=== PATIENT | female | born 1960 | race Caucasian/White ===

== ENCOUNTER 2019-09-06 10:02 | Outpatient (REF) | payer BC, SELFPAY ==
[2019-09-06 12:39] LABS: Chol HDL Ratio 5.78 mg/dL (0.0-4.40); Cholesterol 266 mg/dL (0-200); Glucose 130 mg/dL (65-115); HDL Cholesterol 46 mg/dL (60-100); LDL Cholesterol Calculated 186 mg/dL (50-129); LDL HDL Ratio 4.04 RATIO (0.00-3.22); Triglycerides 170 mg/dL (0-150)
[2019-09-06 13:27] LABS: Estmated Average Glucose 143; Hemoglobin A1C 6.6 % (4.0-6.0)
== END 2019-09-06 10:03 | disposition home or self-care (01) ==
LOC: LAB 10:02
PROVIDERS: Family Provider Family Medicine; PCP Family Medicine; Visit Provider Dermatology
DX: Z01.89 Encounter for other specified special examinations (principal)
CPT/HCPCS: 80061; 82947; 83036

== ENCOUNTER 2019-12-27 14:28 | Outpatient (CLI) | payer BC, SELFPAY ==
--- NOTE | 2019-12-27 14:38 | MM_ITS ---
WS: [id number] BILATERAL SCREENING DIGITAL MAMMOGRAM WITH CAD HISTORY: SCREEN COMPARISON: 12/20/2018 and 12/18/2017 and 12/16/2016 Bilateral CC and MLO views submitted. Computer aided detection analyzed. Breast composition: There are scattered areas of fibroglandular density. No suspicious masses, microc alcifications or architectural distortion. Biopsy clip in the anterior RIGHT breast with no adjacent soft tissue mass or calcification. MM/[id number] IMPRESSION: BI-RADS: 2-Benign FOLLOW UP: 1 Year Follow-up
== END 2019-12-27 14:29 | disposition home or self-care (01) ==
LOC: RADSHAW 14:32
PROVIDERS: PCP Family Medicine; Visit Provider Family Medicine
DX: Z12.31 Encounter for screening mammogram for malignant neoplasm of breast (principal)
CPT/HCPCS: 77067

== ENCOUNTER 2020-02-13 12:49 | Outpatient (CLI) | payer MEDICARE, OTHER, SELFPAY ==
--- NOTE | 2020-02-13 13:03 | US_ITS ---
WS: [id number] ULTRASOUND ABDOMEN LIMITED CLINICAL INFORMATION: CHOLESTERIOSIS OF GALLBLADDER COMPARISON: None. FINDINGS: Liver Size: Upper limits of normal Craniocaudal length: 17.0 cm. Echogenicity: Normal. Surface nodularity: None. Mass (size and location): None. Bile ducts Intrahepatic ducts: Normal. Common bile duct diameter: 0.2 cm. Gallbladder Tiny polyp or tumefactive sludge unchanged measuring 9 mm Gallbladder wall thickening: None. Pericholecystic fluid: None. Sonographic [place] sign: Absent. Pancreas Normal as visualized. Right kidney: Normal. Hydronephrosis: None. Size: 10.9 cm x 5.0 cm x 4.9 cm. Abdominal aorta and IVC Visualized portions are normal. Ascites: None. US/US gall bladder [id number] IMPRESSION: 1. Liver upper limits of normal. 2. Small gallbladder polyp or tumefactive sludge is unchanged. Gallbladder oth erwise normal 3. Normal common bile duct 4. Incidental right renal cyst measuring 1.1 x 1.0 x 1.5 cm
== END 2020-02-13 12:50 | disposition home or self-care (01) ==
LOC: RAD 12:56
PROVIDERS: PCP Family Medicine; Visit Provider Family Medicine
DX: K82.4 Cholesterolosis of gallbladder (principal); Q61.01 Congenital single renal cyst
CPT/HCPCS: 76705

== ENCOUNTER 2020-02-26 15:31 | Outpatient (CLI) | payer MEDICARE, OTHER, SELFPAY ==
--- NOTE | 2020-02-26 15:41 | CT_ITS ---
WS: [id number] CT ABDOMEN AND PELVIS NONCONTRAST HISTORY: FLANK PAIN, UNSPECIFIED ABDOMINAL PAIN TECHNIQUE: Imaging performed through the abdomen and pelvis. Coronal and sagittal reformats are submi tted. All CT scans at [facility] use at least one of these dose optimization techniques: automated exposure control; mA and/or kV adjustment per patient size (includes targeted exams where d ose is matched to clinical indication); or iterative reconstruction. DLP: 962.57 mGycm COMPARISON: 05/10/2017 Lower thorax: Long-term stability 5 mm RIGHT lower lobe nodule. Heart size is normal. No hiatal herni a. Liver: Liver is moderately enlarged extending over length of 17 cm with mild hepatic steatosis. No ma ss or bile duct dilatation. Gallbladder: Unremarkable. Pancreas: Normal. Spleen: Normal. Adrenal glands: Normal. Right kidney: Exophytic cortical hypodensity from the mid kidney measures 11 mm. There are additional smaller cortical hypodensities within the upper pole. No calcification or obstruction. RIGHT ureter is normal. Left kidney: Normal size with no stones, mass or atrophy. Mild atherosclerosis with no aneurysm. No free fluid, intraperitoneal air or significant lymphadenopathy. GI tract: Normal appendix. There is extensive fecal retention in the RIGHT colon and the transverse c olon and splenic flexure. Moderate fecal retention in the descending and sigmoid colon. There are a f ew diverticula without evidence for acute diverticulitis. Abdominal wall: Intact. Pelvis: Prior hysterectomy. Urinary bladder is well distended. No free fluid or adenopathy. Osseous structures: L4 anterolisthesis by 7 mm. Mild progression since 2017 of the anterolisthesis. N o pars defects. Severe disc space narrowing at L5-S1 has also progressed. CT/CT kidney stone [id number] IMPRESSION: 1. Normal appendix. 2. No renal calcifications or obstruction. 3. Marked constipation and fecal retention throughout the colon. 4. Grade 1 anterolisthesis of L4 with degenerative disc disease at L4-5. Progr ession of degenerative changes since 2017. 5. Long-term stability 5 mm RIGHT lower lobe nodule. 6. Moderate hepatic steatosis and hepatomegaly.
== END 2020-02-26 15:32 | disposition home or self-care (01) ==
LOC: RADWPI 15:34
PROVIDERS: PCP Family Medicine; Visit Provider Family Medicine
DX: R10.9 Unspecified abdominal pain (principal); K59.00 Constipation, unspecified; R16.0 Hepatomegaly, not elsewhere classified; K76.0 Fatty (change of) liver, not elsewhere classified; R91.1 Solitary pulmonary nodule
CPT/HCPCS: 74176

== ENCOUNTER → 2020-04-20 11:02 | Outpatient (BNVA) | payer MEDICARE, OTHER, SELFPAY | PROVIDERS: PCP Family Medicine; Visit Provider Internal Medicine | DX: Z01.818 Encounter for other preprocedural examination (principal) | CPT/HCPCS: 87635 ==

== ENCOUNTER 2020-04-23 09:49 | Day surgery (SDC) | payer MEDICARE, OTHER, SELFPAY ==
[2020-04-22 13:59] VITALS: BMI 33.5
[2020-04-23] VITALS (7 sets, daily range): BP systolic 108–154; BP diastolic 56–87; PULSE 51–86; RESP 16–20; TEMP 36.2–36.7; O2SAT 95–100
--- NOTE | 2020-04-23 10:10 | W.PM.OPSUD ---
Surgery/Procedure H&P Update DATE OF PROCEDURE: April 23, 2020 DATE H&P PERFORMED: 04/07/20 H&P UPDATE INFORMATION: No changes to prior documentation PLANNED PROCEDURE: Operation Date: 04/23/20 11:10 Proposed Procedures p Laparoscopic Cholecystectomy(Not Applicable) - Vazquez Rangel MD
[2020-04-23 10:39] LABS: Glucose Point of Care 165 mg/dL (70-110)
[2020-04-23] MEDS: sodium chloride 0.9% 1,000 ML 30 ML IV (10:56)
[2020-04-23] MEDS: scopolamine 1.5 Patch 1 PATCH TRANSDERMA (10:57)
[2020-04-23 11:00] LABS: Alanine Aminotransferase 19 U/L (0-33); Albumin Level 4.7 g/dL (3.5-5.2); Alkaline Phosphatase 125 IU/L (35-105); Aspartate Amino Transferase 21 U/L (0-32); Total Bilirubin 0.4 mg/dL (0.15-1.2); Total Protein 7.7 g/dL (6.6-8.7)
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
--- NOTE | 2020-04-23 12:03 | PM.OP ---
Operative Report Date of procedure: April 23, 2020 Pre-op Diagnosis: Sizable gallbladder polyp, right upper quadrant abdominal pain. Post-op diagnosis: same Procedure Done: Laparoscopic cholecystectomy. Specimens removed/disposition: Gallbladder. Surgeon: Vazquez Rangel Anesthesia: General Estimated blood loss (mL): 5 Complications: None. Disposition: PACU Procedure: The patient was brought to the Operating Room and was placed in a supine position on the Operating Room table. General endotracheal anesthesia was induced. The abdomen was prepped and draped in a sterile fashion. A small vertical incision was carried out in the inferior aspect of the umbilicus. Blunt dissection was carried out down to the fascia, which was grasped with a Bran clamp. A stay suture of 0 Vicryl was placed on either side of the midline and the midline fascia was incised. The underlying peritoneum was opened bluntly and the Jono port was placed directly into the peritoneal cavity and was held in place with the inflatable balloon. The peritoneal cavity was insufflated with carbon dioxide. The laparoscope was used to inspect the abdominal cavity. The patient had some omental adhesions just below the umbilicus which were eventually taken down. No other gross abnormalities were initially noted. A 5 millimeter port was placed in the epigastrium under direct vision. Two 5-millimeter ports were placed on the right side of the abdomen under direct vision. The gallbladder was grasped and was elevated. The patient had adhesions all the way along the fundus down to and involving the infundibular region. These were all taken down using blunt dissection with some cautery to maintain hemostasis. Blunt dissection and hydrodissection were carried out in the infundibular region of the gallbladder and the cystic duct and cystic artery were identified. The gallbladder was partially removed from the liver bed using cautery and the spatula to confirm the anatomy before the structures were clipped and divided. The gallbladder was then removed from the liver bed using cautery and the spatula. A small hole was inadvertently made in the gallbladder during the dissection, and some bile leaked into the subhepatic space that was retrieved with suction. No stones were ever seen to have fallen from the gallbladder lumen, consistent with the preoperative imaging. After the gallbladder had been removed from the liver bed, the laparoscope was moved to the epigastric port and the gallbladder was removed from the peritoneal cavity through the umbilical port site. The stay sutures of Vicryl were tied to each other at the umbilicus, closing the defect so that it was airtight. The perihepatic spaces were irrigated with saline and the liver bed was reinspected. No ongoing problems were seen. The remaining ports were removed from the abdominal wall and the pneumoperitoneum was evacuated. All skin incisions were closed using inverted interrupted sutures of 4-0 Vicryl. Benzoin and Steri-Strips were placed over the incisions and Band-Aids followed. The patient was taken to the Recovery Area in stable condition postoperatively.
[2020-04-23] MEDS: morphine ER (12 HR) 15 mg Tablet PO (13:15)
--- NOTE | 2020-04-23 14:00 | ANE.PACU2 ---
Inpatient post-anesthesia follow up: Airway intact: Yes Vital signs: Temperature 97.8 F Pulse Rate 60 Respiratory Rate 18 Blood Pressure 125/69 Pulse Oximetry 100 Oxygen Delivery Me thod Room Air Oxygen Flow Rate 6 Fraction of Inspir ed Oxygen Hydration adequate: Yes Nausea and vomiting: No Pain level: 2 Mental status: Baseline
== END 2020-04-23 14:06 | disposition home or self-care (01) ==
PROVIDERS: PCP Family Medicine; Visit Provider Surgery
PROC: 0FT44ZZ Resection of Gallbladder, Percutaneous Endoscopic Approach (ICD-10-PCS; CPT 47562; principal; 2020-04-23 11:10)
DX: K82.4 Cholesterolosis of gallbladder (principal); G47.30 Sleep apnea, unspecified; E11.9 Type 2 diabetes mellitus without complications; M79.7 Fibromyalgia; I10 Essential (primary) hypertension; E66.9 Obesity, unspecified; Z68.33 Body mass index [BMI] 33.0-33.9, adult; Z82.49 Family history of ischemic heart disease and other diseases of the circulatory system; E78.00 Pure hypercholesterolemia, unspecified
CPT/HCPCS: 47562; 12345; 36415; 36416; 80076; 82962; 88304; 96365; J0131; J0690; J1100; J2405; J2704; J2710; J3010; J3490; J7030

== ENCOUNTER → 2020-08-10 10:02 | Outpatient (BNVA) | payer MEDICARE, OTHER, SELFPAY | PROVIDERS: PCP Family Medicine; Visit Provider Internal Medicine Cardiovascular Disease | DX: E78.5 Hyperlipidemia, unspecified (principal); E11.9 Type 2 diabetes mellitus without complications; I10 Essential (primary) hypertension | CPT/HCPCS: 80053; 80061; 83036; 83721 ==

== ENCOUNTER 2020-12-25 16:46 | Emergency (ER) | payer MEDICARE, OTHER, SELFPAY ==
[2020-12-25 17:04] VITALS: BP 169/92; PULSE 90; RESP 18; TEMP 36.9; O2SAT 99; BMI 34.0
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
[2020-12-25] MEDS: tetanus-dipt-pertussis 0.5 mL SDV IM (17:49)
== END 2020-12-25 18:20 | disposition home or self-care (01) ==
PROVIDERS: Emergency Provider Nurse Practitioner Family; PCP Family Medicine
DX: S80.811A Abrasion, right lower leg, initial encounter (principal); W26.8XXA Contact with other sharp object(s), not elsewhere classified, initial encounter; E11.9 Type 2 diabetes mellitus without complications; E78.5 Hyperlipidemia, unspecified; I10 Essential (primary) hypertension; Z23 Encounter for immunization
CPT/HCPCS: 90471; 90715; 96372; 99283; J1670

== ENCOUNTER 2020-12-29 08:27 | Outpatient (CLI) | payer MEDICARE, OTHER, SELFPAY ==
--- NOTE | 2020-12-29 08:33 | MM_ITS ---
WS: [id number] BILATERAL SCREENING DIGITAL MAMMOGRAM WITH CAD HISTORY: SCREENING COMPARISON: 12/27/2019 and 12/20/2018 Bilateral CC and MLO views submitted. Computer aided detection analyzed. Breast composition: There are scattered areas of fibroglandular density. No suspicious masses, microc alcifications or architectural distortion. Biopsy clip at 12:00 RIGHT breast. No new or suspicious ma sses or calcifications. MM/[id number] IMPRESSION: BI-RADS: 2-Benign FOLLOW UP: 1 Year Follow-up
== END 2020-12-29 08:28 | disposition home or self-care (01) ==
LOC: RADSHAW 08:30
PROVIDERS: PCP Family Medicine; Visit Provider Family Medicine
DX: Z12.31 Encounter for screening mammogram for malignant neoplasm of breast (principal)
CPT/HCPCS: 77067

== ENCOUNTER → 2021-01-01 15:59 | Outpatient (BNVA) | payer MEDICARE, OTHER, SELFPAY | PROVIDERS: PCP Family Medicine; Visit Provider Nurse Practitioner Family | DX: Z20.822 Contact with and (suspected) exposure to COVID-19 (principal) | CPT/HCPCS: 87635 ==

== ENCOUNTER 2021-03-26 13:41 | Outpatient (CLI) | payer MEDICARE, OTHER, SELFPAY ==
--- NOTE | 2021-03-26 13:47 | MR_ITS ---
WS: [id number] Exam: MR lumbar spine wo con* [id number] Date/Time of Exam: 03/26/2021 1:48 PM Reason For Exam: BACK PAIN, PERIPHERAL NEUROPATHY The lumbar spine is evaluated in the sagittal and axial planes with multiple imaging sequences. There is severe spinal canal stenosis at the L4-5 disc level secondary to degenerative anterolisthesi s of C4 on C5. There is thickening of the ligamentum flavum which also contributes to canal stenosis. There were no other levels of significant spinal canal stenosis. No sign of disc herniation. The homer ral foramina are patent at all levels. Disc degeneration seen at all levels but most severe at L4-5. The vertebra demonstrate normal bone marrow signal. The conus medullaris and cauda equina are unremar kable. Paraspinal soft tissue structures are unremarkable. There are small cysts noted in the visuali zed kidneys. MR/MR lumbar spine wo con* [id number] IMPRESSION: 1. Severe spinal canal stenosis with neural sac impingement at L4-5 secondary t o grade 1 degenerative spondylolisthesis of L4 on L5 and ligamentous thickening . There is about 6 mm forward movement of L4 on L5. 2. No other sign of spinal canal stenosis or significant disc protrusion. The n eural foramina are patent at all levels. 3. Degenerative disc changes and facet DJD at all levels.
== END 2021-03-26 13:42 | disposition home or self-care (01) ==
PROVIDERS: PCP Family Medicine; Visit Provider Family Medicine
DX: M54.9 Dorsalgia, unspecified (principal); G62.9 Polyneuropathy, unspecified; M47.816 Spondylosis without myelopathy or radiculopathy, lumbar region; M48.061 Spinal stenosis, lumbar region without neurogenic claudication
CPT/HCPCS: 72148

== ENCOUNTER 2021-04-22 14:42 | Outpatient (CLI) | payer MEDICARE, OTHER, SELFPAY ==
[2021-04-22 16:03] LABS: Anion Gap 13.8 (5-19); Blood Urea Nitrogen 6 mg/dL (6-20); C Reactive Protein 4.8 mg/L (0.0-4.9); Calcium 9.2 mg/dL (8.5-10.5); Carbon Dioxide 27 mmol/L (22-29); Chloride 103 mmol/L (98-107); Creatine Phosphokinase 106 U/L (26-192); Glomerular Filtration Rate 163.9 mL/min (90-130); Glucose 139 mg/dL (65-115); Lactate (Lactic Acid level) 1.1 mmol/L (0.5-2.2); Magnesium 2.3 mg/dL (1.7-2.3); Osmolality Calculated 290 mOsm/kg (285-295); Potassium 3.8 mmol/L (3.5-5.1); Sodium 140 mmol/L (136-145)
[2021-04-22 17:39] LABS: Iron 109 ug/dL (37-145); Percent Saturation 23.5 % (20-50); Total Iron Binding Capacity 462 mcg/dl; Unsaturated Iron Binding 353 ug/dL (112-347)
== END 2021-04-22 14:43 | disposition home or self-care (01) ==
PROVIDERS: PCP Family Medicine; Visit Provider Family Medicine
DX: M60.9 Myositis, unspecified (principal); M62.838 Other muscle spasm
CPT/HCPCS: 36415; 80048; 82550; 83540; 83550; 83605; 83735; 86140

== ENCOUNTER 2021-04-28 19:32 | Emergency (ER) | payer MEDICARE, OTHER, SELFPAY ==
[2021-04-28 19:43] VITALS: BP 159/84; PULSE 90; RESP 24; TEMP 36.3; O2SAT 100; BMI 33.6
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
[2021-04-28 20:00] VITALS: PULSE 92
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
[2021-04-28 20:05] VITALS: BP 149/80; PULSE 88; RESP 22; TEMP 37.1; O2SAT 99
[2021-04-28 20:06] VITALS: RESP 22; O2SAT 100
[2021-04-28] MEDS: morphine 4 mg/mL SDV 1 mL IM (20:06)
--- NOTE | 2021-04-28 20:33 | PC.NURSE ---
Right 2nd, 3rd and 4th fingers are splinted together for rachael wrap with pedi board for support. Pulses, sensation WNL before and after splinting.
[2021-04-28 20:36] VITALS: BP 156/80; PULSE 90; RESP 18; TEMP 37.1; O2SAT 99
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
[2021-04-28 20:59] VITALS: BP 135/77; PULSE 84; RESP 16; O2SAT 97
--- NOTE | 2021-04-28 21:11 | PC.NURSE ---
[facility]
== END 2021-04-28 21:25 | disposition home or self-care (01) ==
PROVIDERS: Emergency Provider Emergency Medicine; PCP Family Medicine
DX: S62.612A Displaced fracture of proximal phalanx of right middle finger, initial encounter for closed fracture (principal); Y04.8XXA Assault by other bodily force, initial encounter; E11.9 Type 2 diabetes mellitus without complications; E78.5 Hyperlipidemia, unspecified; I10 Essential (primary) hypertension
CPT/HCPCS: 73120; 96372; 99283; J2270

== ENCOUNTER → 2021-07-21 15:58 | Outpatient (BNVA) | payer MEDICARE, OTHER, SELFPAY | PROVIDERS: PCP Family Medicine; Visit Provider Emergency Medicine | DX: Z20.822 Contact with and (suspected) exposure to COVID-19 (principal) | CPT/HCPCS: 87635 ==

== ENCOUNTER 2021-09-27 10:57 | Outpatient (CLI) | payer MEDICARE, OTHER, SELFPAY ==
[2021-09-27 11:09] VITALS: BMI 33.5
--- NOTE | 2021-09-27 11:11 | NMCV_ITS ---
NM patti perf SPECT r/s* [id number] Vinicio Hough Age: 61 Gender: F : 1960 Exam Date: 09/27/2021 11:50 Ordering Phys: Jessica Hernadez MD ([email or web address]) Technologist: DEEPTHI Abreu Exam Location: [facility] Indications: CHEST PAIN STRESS TEST Please see separate stress test report in [facility] for full findings IMAGE PROTOCOL Rest/Stress 1 Exercise Day Radiopharmaceutical Dose (mCi) Administration Site Administered by Rest: Tc-99m 10.8 IV DEEPTHI Salazar Sestamibi Stress:Tc-99m 32.5 IV DEEPTHI Salazar Sestamibi Rest: 27-Sep-2021 60 Discovery 630 Stress: 27-Sep-2021 15 Discovery 630 Radiopharmaceutical was injected at 86 % maximum heart rate. Images obtained in supine and prone position. SPECT RESULTS Technical Quality: Excellent Raw Data Analysis: Normal Image Corrections: No attenuation or motion correction applied Summed Stress Score: 4 Summed Rest Score: 0 Summed Difference Score: 4 PERFUSION FINDINGS Small sized perfusion abnormality of mild severity of mid inferolateral and apical lateral wall on supine stress images with improved tracer uptake on prone stress images. This is suggestive of attenuation artifact. FUNCTIONAL RESULTS (calculated via Gated SPECT) Stress Image LV EF (%): 73 Stress EDV (mL):83 TID: 0.75 Stress ESV (mL):22 FUNCTIONAL FINDINGS: The left ventricle is normal in size. Transient Ischemia Dilatation of 0.75. There is normal left ventricular systolic function. The left ventricular ejection fraction is normal with a value of 73%. There is normal left ventricular wall thickening with no regional wall motion abnormality. Normal end-diastolic and end-systolic volumes. IMPRESSIONS 1. Myocardial perfusion imaging is normal. 2. Overall left ventricular systolic function is normal without regional wall motion abnormalities. 3. The left ventricular ejection fraction is normal with a value of 73%. 4. No EKG changes with exercise. Refer to separate report for details. 5. No prior similar studies to compare. Jessica Hernadez MD (Electronically Signed) Final Date: 30 September 2021 17:04 S
--- NOTE | 2021-09-27 11:11 | ECG_ITS ---
[facility] Test Date: 2021-09-27 Pat Name: Vinicio Hough Department: Room: Gender: Female Mid Level Developer: Cecy Wren : 1960 Requested By: Jessica Hernadez Order Number: [id number] De Dios MD: Jessica Hernadez M.D. Interpretive Statements NAME OF STUDY: EXERCISE SESTAMIBI STRESS TEST INDICATION: Chest Pain Baseline blood pressure of 153/87 mm Hg, heart rate 82 beats per minute and oxygen saturation of 95%. EKG showed normal sinus rhythm, normal axis with normal ST-Ts. The patient exercised for 6 minutes 33 seconds on a standard Satya protocol. Patient attained a maximum heart rate of 142 beats per minute(88% of the maximum predicted heart rate) with a blood pressure at the peak exercise of 191/65 mm Hg and oxygen saturation 97%. The EKG at the peak exercise revealed sinus tachycardia with no significant ST-T wave changes. Patient did not have any chest pain or any significant arrhythmis with the exercise. The study was terminated due to exertional fatigue and maximal effort. During the recovery phase, there were no new changes. Blood pressure at the end of the recovery phase was 140/72 mm Hg with a heart rate of 96 beats per minute and oxygen saturation 97%. CONCLUSION: 1. Normal EKG response to treadmill exercise. 2. No exercise-induced chest pain or cardiac arrhythmia. 3. Fair exercise tolerance, attained a maximum of 7 METs. Maximum VO2 of 24.5 mL/kg/min. 4. Baseline hypertension with normal response to exercise. 5. Perfusion scan will be documented separately. Electronically Signed On 09-30-2021 16:54:07 MOHS SURGEON/GENERAL DERMATOLOGIST by Jessica Hernadez M.D. [id number]
[2021-09-27 12:41] VITALS: BP 140/72; PULSE 94
== END 2021-09-27 10:58 | disposition home or self-care (01) ==
LOC: RAD 10:58 → CDL 10:59
PROVIDERS: PCP Family Medicine; Visit Provider Internal Medicine Cardiovascular Disease
DX: R06.02 Shortness of breath (principal)
CPT/HCPCS: 78452; 93017; A9500

== ENCOUNTER 2021-10-06 13:59 | Outpatient (CLI) | payer MEDICARE, OTHER, SELFPAY ==
[2021-10-06 14:25] LABS: Basophils # 0.1 10^3/uL (0.0-0.1); Basophils % 1.2 %; Eosinophils # 0.2 10^3/uL (0.0-0.8); Eosinophils % 2.6 %; Hematocrit 41.8 % (37.0-47.0); Hemoglobin 14.1 g/dL (11.5-15.3); Lymphocytes # 1.7 10^3/uL (0.8-4.8); Lymphocytes % 19.1 %; Mean Corpuscular HGB Conc 33.7 g/dL (30.0-36.0); Mean Corpuscular Hemoglobin 30.3 pg (28.0-34.0); Mean Corpuscular Volume 89.9 fl (81-99); Mean Platelet Volume 11.4 fL (7.4-10.4); Monocytes # 0.5 10^3/uL (0.2-0.9); Monocytes % 5.9 %; Neutrophils # 6.29 10^3/uL (1.8-7.7); Nucleated Red Blood Cells % 0 %; Platelet Count 274 10^3/cmm (130-400); Red Blood Count 4.65 10^6/uL (4.1-5.3); Red Cell Distribution Width 12.6 % (12.1-15.1); White Blood Count 8.9 10^3/uL (4.0-10.0)
[2021-10-06 14:44] LABS: Estmated Average Glucose 163; Hemoglobin A1C 7.3 % (4.0-6.0)
[2021-10-06 14:57] LABS: Chol HDL Ratio 5.62 mg/dL (0.0-4.40); Cholesterol 292 mg/dL (0-200); HDL Cholesterol 52 mg/dL (60-100); LDL Cholesterol Calculated 209 mg/dL (50-129); Triglycerides 157 mg/dL (0-150); VLDL Cholestrol Calculation 31 mg/dL (0-30)
[2021-10-07 14:50] LABS: Alanine Aminotransferase 20 U/L (0-33); Albumin Level 4.2 g/dL (3.5-5.2); Alkaline Phosphatase 132 IU/L (35-105); Aspartate Amino Transferase 20 U/L (0-32); Globulin 2.8 g/dL (1.3-4.6); LDL Cholesterol Direct 215 mg/dL (0-100); Total Bilirubin 0.2 mg/dL (0.15-1.2)
== END 2021-10-06 14:00 | disposition home or self-care (01) ==
LOC: LAB 14:03
PROVIDERS: Internal Medicine Cardiovascular Disease; PCP Family Medicine; Visit Provider Family Medicine
DX: E78.5 Hyperlipidemia, unspecified (principal); I10 Essential (primary) hypertension; E11.9 Type 2 diabetes mellitus without complications
CPT/HCPCS: 80061; 80076; 83036; 83721; 85025

== ENCOUNTER → 2021-10-27 11:28 | Outpatient (BNVA) | payer MEDICARE, OTHER, SELFPAY | PROVIDERS: PCP Family Medicine; Visit Provider Internal Medicine Cardiovascular Disease | DX: R07.9 Chest pain, unspecified (principal); I10 Essential (primary) hypertension; E78.5 Hyperlipidemia, unspecified; E11.9 Type 2 diabetes mellitus without complications | CPT/HCPCS: 99214 ==

== ENCOUNTER 2021-11-08 10:40 | Outpatient (CLI) | payer MEDICARE, OTHER, SELFPAY ==
--- NOTE | 2021-11-08 10:48 | XR_ITS ---
WS: [id number] SCREENING DEXA SCAN Flavourly CLINICAL INFORMATION: ASYMPTOMATIC MENOPAUSAL STATE COMPARISON: None. FINDINGS: The L1-L4 bone mineral density measures 1.068 g/cm2. This corresponds to a T score score of -0.9 and Z score of -0.5. Left femoral neck bone mineral density measures 0.908 g/cm2. This corresponds to a T score of -0.8 an d Z score of -0.4. Right femoral neck bone mineral density measures 0.937 g/cm2. This corresponds to a T score -0.6of an d Z score of -0.2. Mean femoral neck bone mineral density measures 0.922 g/cm2. This corresponds to a T score of -0.7 an d Z score of -0.3. XR/XR DEXA axial skeleton* [id number] IMPRESSION: Normal bone mineralization. Patient's FRAX calculated 10 year probability for major osteoporotic fracture i s 15.5 % and osteoporotic hip fracture is 2.1%.
== END 2021-11-08 10:41 | disposition home or self-care (01) ==
LOC: RAD 10:43
PROVIDERS: PCP Family Medicine; Visit Provider Family Medicine
DX: Z78.0 Asymptomatic menopausal state (principal)
CPT/HCPCS: 77080

== ENCOUNTER 2022-01-14 14:21 | Outpatient (CLI) | payer MEDICARE, OTHER, SELFPAY ==
--- NOTE | 2022-01-14 14:32 | MM_ITS ---
WS: [id number] BILATERAL SCREENING DIGITAL BREAST TOMOSYNTHESIS MAMMOGRAM WITH CAD HISTORY: SCREEN COMPARISON: 12/29/2021, 12/18/2017 Bilateral CC and MLO views with tomosynthesis and synthetic mammography submitted. Computer aided det ection analyzed. Breast composition: There are scattered areas of fibroglandular density. No suspicious masses, microc alcifications or architectural distortion. Stable calcifications and asymmetries within each breast. MM/[place] [id number] IMPRESSION: BI-RADS: 2-Benign FOLLOW UP: 1 Year Follow-up
== END 2022-01-14 14:22 | disposition home or self-care (01) ==
LOC: RAD 14:25
PROVIDERS: PCP Family Medicine; Visit Provider Family Medicine
DX: Z12.31 Encounter for screening mammogram for malignant neoplasm of breast (principal)
CPT/HCPCS: 77063; 77067

== ENCOUNTER 2022-04-14 11:09 | Outpatient (CLI) | payer MEDICARE, OTHER, SELFPAY ==
[2022-04-14 12:38] LABS: Thyroid Stimulating Hormone 3.75 uIU/mL (0.27-4.20)
== END 2022-04-14 11:10 | disposition home or self-care (01) ==
PROVIDERS: PCP Family Medicine; Visit Provider Family Medicine
DX: E03.9 Hypothyroidism, unspecified (principal)
CPT/HCPCS: 36415; 84443

== ENCOUNTER → 2022-04-26 11:24 | Outpatient (BNVA) | payer MEDICARE, OTHER, SELFPAY | PROVIDERS: PCP Family Medicine; Visit Provider Internal Medicine Cardiovascular Disease | DX: R07.9 Chest pain, unspecified (principal); I10 Essential (primary) hypertension; E78.5 Hyperlipidemia, unspecified | CPT/HCPCS: 99214 ==

== ENCOUNTER 2022-06-30 13:30 | Outpatient (CLI) | payer MEDICARE, OTHER, SELFPAY ==
--- NOTE | 2022-06-30 13:37 | USCV_ITS ---
Vinicio Hough Age: 61 Gender: F : 1960 Exam Date: 06/30/2022 13:52 Ordering Phys: Mayda Hurtado MD Technologist: MINESH [place]am [place] [facility] [place] Indication: LLE PAIN AND EDEMA HISTORY: Lower extremity swelling. Lower extremity pain. PROCEDURES: Venous duplex imaging was performed in only the left lower extremity. The following venous structures were evaluated: common femoral vein, profunda vein, proximal portion of the greater saphenous vein, superficial femoral vein, and the popliteal vein. In addition, the posterior tibial and peroneal trunk were evaluated. Serial compression, augmentation maneuvers, and spectral Doppler flow evaluation were performed. FINDINGS: No evidence of DVT seen in any vessel visualized at this time. CONCLUSIONS No evidence of left lower extremity DVT. Pool Bello MD (Electronically Signed) Final Date: 30 June 2022 14:28 S
== END 2022-06-30 13:31 | disposition home or self-care (01) ==
LOC: RAD 13:30
PROVIDERS: PCP Family Medicine; Visit Provider Family Medicine
DX: M79.662 Pain in left lower leg (principal); R06.00 Dyspnea, unspecified
CPT/HCPCS: 93971

== ENCOUNTER 2023-02-02 13:27 | Outpatient (CLI) | payer MEDICARE, OTHER, SELFPAY ==
--- NOTE | 2023-02-02 13:40 | MM_ITS ---
WS: [id number] BILATERAL SCREENING DIGITAL TOMOSYNTHESIS MAMMOGRAM WITH CAD HISTORY: SCREENING COMPARISON: 01/14/2022, 12/29/2020 Bilateral CC and MLO views with tomosynthesis and synthetic mammography submitted. Computer aided det ection analyzed. Breast composition: There are scattered areas of fibroglandular density. No suspicious masses, microc alcifications or architectural distortion. Prior biopsy clip in the anterior RIGHT breast. MM/[place] [id number] IMPRESSION: BI-RADS: 2-Benign FOLLOW UP: 1 Year Follow-up
== END 2023-02-02 13:28 | disposition home or self-care (01) ==
LOC: RAD 13:28
PROVIDERS: PCP Family Medicine; Visit Provider Family Medicine
DX: Z12.31 Encounter for screening mammogram for malignant neoplasm of breast (principal)
CPT/HCPCS: 77063; 77067

== ENCOUNTER 2023-03-01 13:34 | Outpatient (RCR) | payer MEDICARE, OTHER, SELFPAY | END 2023-03-30 23:59 | disposition home or self-care (01) | LOC: SPT 13:34 | PROVIDERS: PCP Family Medicine; Visit Provider Internal Medicine Cardiovascular Disease | DX: M53.3 Sacrococcygeal disorders, not elsewhere classified (principal) | CPT/HCPCS: 97110; 97161 ==

== ENCOUNTER 2023-03-31 06:00 | Outpatient (RCR) | payer MEDICARE, OTHER, SELFPAY | END 2023-04-29 23:59 | disposition home or self-care (01) | LOC: SPT 06:00 | PROVIDERS: PCP Family Medicine; Visit Provider Internal Medicine Cardiovascular Disease | DX: M53.3 Sacrococcygeal disorders, not elsewhere classified (principal) | CPT/HCPCS: 97110; G0283 ==

== ENCOUNTER 2023-04-30 06:00 | Outpatient (RCR) | payer MEDICARE, OTHER, SELFPAY | END 2023-05-30 23:59 | disposition home or self-care (01) | LOC: SPT 06:00 | PROVIDERS: PCP Family Medicine; Visit Provider Internal Medicine Cardiovascular Disease | DX: M53.3 Sacrococcygeal disorders, not elsewhere classified (principal); M54.50 Low back pain, unspecified; Z98.1 Arthrodesis status; M47.816 Spondylosis without myelopathy or radiculopathy, lumbar region | CPT/HCPCS: 97110 ==

== ENCOUNTER → 2023-07-12 14:09 | Outpatient (BNVA) | payer MEDICARE, OTHER, SELFPAY | PROVIDERS: PCP Family Medicine; Visit Provider Dermatology | DX: D22.39 Melanocytic nevi of other parts of face (principal); L72.0 Epidermal cyst; L81.4 Other melanin hyperpigmentation; L57.0 Actinic keratosis; L82.0 Inflamed seborrheic keratosis; L82.1 Other seborrheic keratosis | CPT/HCPCS: 17000; 17110; 99213 ==

== ENCOUNTER 2023-12-21 13:55 | Outpatient (CLI) | payer MEDICARE, OTHER, SELFPAY ==
--- NOTE | 2023-12-21 14:08 | MM_ITS ---
WS: [id number] BILATERAL 3D TOMOSYNTHESIS DIGITAL DIAGNOSTIC MAMMOGRAPHY WITH CAD CLINICAL INFORMATION: SKIN CHANGES HISTORY: Skin changes. Areas of palpable concern COMPARISON: 2022 TECHNIQUE: Bilateral CC, MLO, and ML views. FINDINGS: Scattered fibroglandular densities bilaterally. Biopsy clip RIGHT breast. Few incidental punctate farzana cifications. Palpable marker near the RIGHT areola. No underlying parenchymal abnormalities in this a edwin. Additional palpable marker near the RIGHT axilla. Ultrasound of these areas is pending. LEFT breast is unchanged. ULTRASOUND BREAST RIGHT TECHNIQUE: Ultrasound right breast focused area of concern. CLINICAL INFORMATION: SKIN CHANGES FINDINGS: Ultrasound areas of concern RIGHT areola and RIGHT axilla. No suspicious abnormalities in the areas of concern in the RIGHT areola and RIGHT axilla. Normal underlying parenchymal tissue. No cystic or s olid lesions. No lesions to target for biopsy. MM/[place] [id number] IMPRESSION: BI-RADS: 2-Benign FOLLOW UP: 1 Year Follow-up Recommend return to annual screening mammography.
== END 2023-12-21 13:56 | disposition home or self-care (01) ==
LOC: RAD 13:55
PROVIDERS: PCP Family Medicine; Visit Provider Family Medicine
DX: R23.4 Changes in skin texture (principal); R92.323 Mammographic fibroglandular density, bilateral breasts
CPT/HCPCS: 76642; 77062; G0279

== ENCOUNTER → 2024-01-16 15:34 | Outpatient (BNVA) | payer MEDICARE, OTHER, SELFPAY | PROVIDERS: PCP Family Medicine; Visit Provider Dermatology | DX: D18.01 Hemangioma of skin and subcutaneous tissue (principal); L82.0 Inflamed seborrheic keratosis; L57.0 Actinic keratosis; L73.8 Other specified follicular disorders; I83.92 Asymptomatic varicose veins of left lower extremity; L60.3 Nail dystrophy; L30.4 Erythema intertrigo | CPT/HCPCS: 17000; 17110; 99214 ==

== ENCOUNTER → 2024-04-09 13:34 | Outpatient (BNVA) | payer MEDICARE, OTHER, SELFPAY | PROVIDERS: PCP Family Medicine; Referring Provider Psychiatry & Neurology Neurology; Visit Provider Psychiatry & Neurology Neurology | DX: M62.838 Other muscle spasm (principal); R20.0 Anesthesia of skin | CPT/HCPCS: 95885; 95910 ==

== ENCOUNTER 2024-07-30 13:46 | Outpatient (CLI) | payer MEDICARE, OTHER, SELFPAY ==
--- NOTE | 2024-07-30 13:52 | USR_ITS ---
PROCEDURE INFORMATION: Exam: US Left Limited Joint or Other Non-Vascular Extremity Structure Exam date and time: 07/30/2024 2:02 PM Age: 63 years old Clinical indication: Mass or lump; Upper leg; Left; Additional info: Benign lipomalous neoplasm TECHNIQUE: Imaging protocol: US left limited joint or other nonvascular extremity structure. Real-time ultrasound with image documentation. Exam focused on the area of clinical interest. COMPARISON: CT kidney stone [id number] 02/26/2020 3:48 PM FINDINGS: Soft tissues: Unremarkable. No loculated collections. US/US soft tissue/extremity [id number] IMPRESSION: Unremarkable US.
== END 2024-07-30 13:47 | disposition home or self-care (01) ==
LOC: RAD 13:47
PROVIDERS: PCP Family Medicine; Visit Provider Family Medicine
DX: D17.24 Benign lipomatous neoplasm of skin and subcutaneous tissue of left leg (principal)
CPT/HCPCS: 76882

== ENCOUNTER 2024-11-29 12:51 | Outpatient (CLI) | payer MEDICARE, OTHER, SELFPAY ==
--- NOTE | 2024-11-29 12:54 | USR_ITS ---
PROCEDURE INFORMATION: Exam: US Abdomen Complete Exam date and time: 11/29/2024 1:40 PM Age: 64 years old Clinical indication: Other: R flank pain TECHNIQUE: Imaging protocol: Real-time ultrasound of the abdomen with image documentation. Complete exam. COMPARISON: CT kidney stone [id number] 02/26/2020 3:48 PM FINDINGS: Liver: Liver measures up to 19 cm longitudinally. The liver demonstrates mildly elevated parenchymal echogenicity, slightly coarsened echotexture, and attenuation of the sound beam. No focal hepatic lesion identified. Gallbladder: Status post cholecystectomy. Biliary ducts: Normal. No stones. No dilation. Pancreas: Visualized pancreas is unremarkable. Right kidney: 1.3 cm right renal cyst. Left kidney: Normal. No mass. No hydronephrosis. Spleen: Normal. No splenomegaly. Aorta: Normal. No aneurysm. Inferior vena cava: Normal. US/US abdomen complete* [id number] IMPRESSION: 1. Mild hepatomegaly. 2. Probable hepatic steatosis. Correlate with liver function tests. 3. Status post cholecystectomy.
== END 2024-11-29 12:52 | disposition home or self-care (01) ==
PROVIDERS: PCP Family Medicine; Visit Provider Family Medicine
DX: R10.9 Unspecified abdominal pain (principal); R16.0 Hepatomegaly, not elsewhere classified; R93.2 Abnormal findings on diagnostic imaging of liver and biliary tract; Z90.49 Acquired absence of other specified parts of digestive tract; N28.1 Cyst of kidney, acquired
CPT/HCPCS: 76700

== ENCOUNTER 2024-12-24 14:17 | Outpatient (CLI) | payer MEDICARE, OTHER, SELFPAY ==
--- NOTE | 2024-12-24 14:20 | MM_ITS ---
WS: [id number] BILATERAL 3D TOMOSYNTHESIS DIGITAL SCREENING MAMMOGRAPHY WITH CAD CLINICAL INFORMATION: SCREENING HISTORY: Screening mammogram. No current complaints. COMPARISON: 2023 TECHNIQUE: Bilateral CC and MLO views. FINDINGS: Scattered fibroglandular densities bilaterally. No suspicious focal mass, asymmetry, calcifications, or architectural distortion. No evidence of malignancy. Biopsy clip anterior RIGHT breast. Incidental punctate calcifications. MM/MM scr tomosynthesis [id number] IMPRESSION: DENSITY: There are scattered areas of fibroglandular density. BI-RADS: 2 - Benign. FOLLOW UP: 1 Year Follow-up Recommend return to annual screening mammography.
== END 2024-12-24 14:18 | disposition home or self-care (01) ==
LOC: RAD 14:18
PROVIDERS: PCP Family Medicine; Visit Provider Family Medicine
DX: Z12.31 Encounter for screening mammogram for malignant neoplasm of breast (principal); R92.323 Mammographic fibroglandular density, bilateral breasts; R92.1 Mammographic calcification found on diagnostic imaging of breast
CPT/HCPCS: 77063; 77067

== ENCOUNTER → 2024-12-30 13:35 | Outpatient (BNVA) | payer MEDICARE, OTHER, SELFPAY | PROVIDERS: PCP Family Medicine; Visit Provider Family Medicine | DX: I10 Essential (primary) hypertension (principal); E03.9 Hypothyroidism, unspecified | CPT/HCPCS: 80048; 84439; 84443 ==

== ENCOUNTER 2025-01-09 10:37 | Outpatient (CLI) | payer MEDICARE, OTHER, SELFPAY ==
--- NOTE | 2025-01-09 | ECG_ITS ---
[facility] Test Date: 2025-01-09 Pat Name: Vinicio Hough Department: Room: Gender: Female Food Aide: : 1960 Requested By: Hannah Ji Order Number: [id number] Va MD: Maru Gomes M.D. Interpretive Statements Lung unchanged pre/post procedure; Intraprocedure shortess of breath; Symptoms resoled by discharge PROCEDURE: At the baseline, the EKG revealed normal sinus rhythm with a normal ST Ts. The baseline heart was 64 bpm with a blood pressue of 157/77 mm of Hg Lexiscan was infused over a period of 20 seconds. A total of 0.4 milligrams of Lexiscan was infused. The stress phase was continued for a total of 5 minutes. Heart rate at the end of the stress phase was 83 bpm with a blood pressure 143/60 mm of Hg. The EKG at the peak infusion revealed no significant changes. Sestamibi was injected 20 seconds after the Lexiscan infusion. Heart rate at the end of the recovery phase was 83 bpm with a blood pressure of 153/76 mm of Hg. CONCLUSION: 1. No significant EKG changes with the LexiScan infusion 2. No LexiScan induced chest pain or cardiac arrhythmia 3. Normal blood pressure and heart rate response 4. Sestamibi/sestamibi perfusion scan pending; see separate report. Electronically Signed On 01-10-2025 22:02:29 CDT by Maru Gomes M.D. [email or web address] [id number]
[2025-01-09 10:39] VITALS: BMI 34.0
--- NOTE | 2025-01-09 10:44 | NMCV_ITS ---
NM patti perf SPECT r/s* [id number] Vinicio Hough Age: 64 Gender: F : 1960 Exam Date: 01/09/2025 11:45 Ordering Phys: Hannah Sorenson DO Technologist: DEEPTHI Marin Exam Location: [facility] Indications: cp STRESS TEST [facility] IMAGE PROTOCOL Rest/Stress 1 Lexiscan Day Radiopharmaceutical Dose (mCi) Administration Site Administered by Rest: Tc-99m [address] Baum LICENSED PSYCHOLOGIST MANAGER Stress:Tc-99m 32.[address] Baum LICENSED PSYCHOLOGIST MANAGER Rest: 01/09/2025 60 Discovery 630 Stress: 01/09/2025 30 Discovery 630 Images obtained in supine and prone position. 0.4mg Lexiscan. SPECT RESULTS Technical Quality: Good Raw Data Analysis: Normal Image Corrections: Summed Stress Score: 7 Summed Rest Score: 2 Summed Difference Score: 5 PERFUSION FINDINGS Small area of moderately decreased tracer uptake involving the mid inferolateral, apical lateral, apical inferior and LV apex. Significant reversibility was noted in this area FUNCTIONAL RESULTS (calculated via Gated SPECT) Stress Image LV EF (%): 61 Stress EDV (mL):98 TID: 1.14 Stress ESV (mL):38 FUNCTIONAL FINDINGS: Segmental wall motion analysis revealing no gross wall motion abnormalities IMPRESSIONS 1. Myocardial perfusion imaging revealing a small area of reversible defect involving the inferolateral, apical lateral, apical inferior and LV apex suggesting ischemia distribution of the left circumflex artery 2. Normal LV ejection fraction of 61% 3. LV wall motion analysis revealing no gross wall motion abnormalities. 4. Normal LV volume 5. Slightly elevated transient ischemic dilatation ratio, of 1.14 also may suggest underlying ischemia Compared to the study from 03/01/2022, the ischemia appears to be new Dr Maru Gomes MD [facility] (Electronically Signed) Final Date: 09 January 2025 14:06 S
[2025-01-09] MEDS: regadenoson 0.4 Mg/5 ml Syringe IVP (12:25)
[2025-01-09 12:45] VITALS: BP 147/74; PULSE 88
== END 2025-01-09 10:38 | disposition home or self-care (01) ==
LOC: CDL 10:39
PROVIDERS: PCP Family Medicine; Visit Provider Internal Medicine Cardiovascular Disease
DX: I20.89 Other forms of angina pectoris (principal); R93.1 Abnormal findings on diagnostic imaging of heart and coronary circulation
CPT/HCPCS: 36415; 78452; 93017; 96374; A9500; J2785

== ENCOUNTER 2025-01-09 14:21 | Outpatient (CLI) | payer MEDICARE, OTHER, SELFPAY ==
--- NOTE | 2025-01-09 14:15 | CTR_ITS ---
PROCEDURE INFORMATION: Exam: CT Abdomen And Pelvis Without And With Contrast Exam date and time: 01/09/2025 2:47 PM Age: 64 years old Clinical indication: Abnormal findings; Abnormal radiologic finding of the abdomen; Radiologic exam and body structure: US abd; Prior surgery; Surgery date: 6+ months; Surgery type: Back, hyst, gb; Follow up right renal cyst, right flank pain x 1 year. 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 Radiation optimization: All CT scans at this facility use at least one of these dose optimization techniques: automated exposure control; mA and/or kV adjustment per patient size (includes targeted exams where dose is matched to clinical indication); or iterative reconstruction. Contrast material: OMNIPAQUE 350; Contrast volume: 100 ml; Contrast route: INTRAVENOUS (IV); COMPARISON: CT kidney stone [id number] 02/26/2020 3:48 PM RADIATION DOSE METRICS: Total DLP (mGy-cm): 1172.65 FINDINGS: Liver: Normal. No mass. Gallbladder and biliary ducts: Status post cholecystectomy. No evidence of significant biliary obstruction. Pancreas: Stable 12 mm cyst in the uncinate process of the pancreas, unchanged since 2019. Spleen: Normal. No splenomegaly. Adrenal glands: Normal. No mass. Kidneys and ureters: Small exophytic hypoattenuating lesions are seen in the right renal cortex, largest measuring 1.5 cm, minimally increased in size from prior. The largest of these have density measurements slightly above that of water (25 Hounsfield units) and demonstrate no appreciable contrast enhancement. Stomach and bowel: Unremarkable. No obstruction. No mucosal thickening. Appendix: No evidence of appendicitis. Intraperitoneal space: Unremarkable. No free air. No significant fluid collection. Vasculature: Aortoiliac atherosclerotic disease is seen without evidence of aneurysm. Lymph nodes: Unremarkable. No enlarged lymph nodes. Urinary bladder: Unremarkable as visualized. Reproductive: Unremarkable as visualized. Bones/joints: Interval postoperative changes from L4-L5 posterior spinal fusion with interbody spacer. No acute or suspicious osseous abnormality. Soft tissues: Unremarkable. CT/CT abdomen pelvis wo/w [id number] IMPRESSION: 1. No evidence of acute abdominal or pelvic process. 2. Small hemorrhagic cysts in the right kidney. COMMENTS: Consistent with the [employer]'s Incidental Findings Committee white paper (J Am Santiago Radiol 2018): Any incidental renal lesion less than 1 cm or classified as too small to characterize, or any incidental cystic renal lesion characterized as simple-appearing, is likely benign. No follow-up imaging is recommended for these lesions per consensus recommendations based on imaging criteria.
[2025-01-09] MEDS: iohexol 350 mg/mL 500 mL Btl (per mL) IV (14:58)
== END 2025-01-09 14:22 | disposition home or self-care (01) ==
LOC: RAD 14:22
PROVIDERS: PCP Family Medicine; Visit Provider Family Medicine
DX: R10.9 Unspecified abdominal pain (principal); N28.1 Cyst of kidney, acquired; Z90.49 Acquired absence of other specified parts of digestive tract; K86.2 Cyst of pancreas; N28.89 Other specified disorders of kidney and ureter; I70.8 Atherosclerosis of other arteries; Z98.1 Arthrodesis status
CPT/HCPCS: 74178

== ENCOUNTER → 2025-01-16 14:10 | Outpatient (BNVA) | payer MEDICARE, OTHER, SELFPAY | PROVIDERS: PCP Family Medicine; Visit Provider Dermatology | DX: L24.9 Irritant contact dermatitis, unspecified cause (principal); L73.8 Other specified follicular disorders; D18.01 Hemangioma of skin and subcutaneous tissue; L57.3 Poikiloderma of Civatte; L44.8 Other specified papulosquamous disorders; I83.93 Asymptomatic varicose veins of bilateral lower extremities; L82.1 Other seborrheic keratosis; L21.8 Other seborrheic dermatitis; L82.0 Inflamed seborrheic keratosis; R20.8 Other disturbances of skin sensation; L29.89 Other pruritus | CPT/HCPCS: 17110; 99214 ==

== ENCOUNTER 2025-02-04 11:14 | Outpatient (CLI) | payer MEDICARE, OTHER, SELFPAY ==
--- NOTE | 2025-02-04 11:21 | USCV_ITS ---
Vinicio Hough Age: 64 Gender: F : 1960 Exam Date: 02/04/2025 11:35 Ordering Phys: Hannah Sorenson DO Technologist: BIN Exam Location: [facility] [place] Indication: Essential HTN BP: 132 / 80 HR: 65 Rhythm: Sinus Technical Quality: Adequate MEASUREMENTS (Male / Female) Normal Values 2D ECHO LV Diastolic Diameter PLAX 4.8 cm 4.2 - 5.9 / 3.9 - 5.3 cm IVS Diastolic Thickness 0.9 cm 0.6 - 1.0 / 0.6 - 0.9 cm IVS Systolic Thickness 1.3 cm LVPW Diastolic Thickness 0.8 cm 0.6 - 1.0 / 0.6 - 0.9 cm LVPW Systolic Thickness 1.2 cm LVOT Diameter 1.9 cm LV Ejection Fraction 2D Teich 57.9 % LV Ejection Fraction MOD 4C 58.0 % LV Ejection Fraction MOD 2C 62.9 % LV Ejection Fraction 2C AL 63.8 % LA Diameter 2.4 cm RA Systolic Volume 4C AL 36.6 ml RA Systolic Volume 4C MOD 35.7 ml LA Sys Volume AL 34.6 cm cubed LA Sys Volume Index AL 17.8 cm cubed/m squared Aorta at Sinotubular Diameter 2.3 cm IVC Diameter 1.6 cm M-MODE LA Ao Ratio MM 1.1 AV Cusp Separation MM 1.3 cm DOPPLER AV Peak Velocity 201.0 cm/s LVOT Peak Velocity 86.0 cm/s AV Area Cont Eq vti 1.2 cm squared AV Area Cont Eq pk 1.3 cm squared MV Peak Velocity 107.0 cm/s MV Area PHT 3.6 cm squared Mitral E to A Ratio 0.9 TR Peak Velocity 88.0 cm/s TR Peak Gradient 3.1 mmHg TV Peak E Velocity 66.0 cm/s PV Peak Velocity 101.0 cm/s FINDINGS Left Ventricle Normal left ventricular size and systolic function, EF 64%. Grade I/IV diastolic dysfunction (abnormal relaxation filling pattern), normal to mildly elevated filling pressures. Mild left ventricular hypertrophy. Right Ventricle The right ventricle is normal in size and function. Right Atrium The right atrium is normal in size. Left Atrium The left atrium is normal in size. Mitral Valve Trace to mild mitral valve regurgitation. Aortic Valve Thickened aortic valve. Aortic valve sclerosis. Trace aortic valve regurgitation. Tricuspid Valve No gross abnormal Pulmonic Valve No gross abnormalities no Pericardium No pericardial effusion. Aorta Normal aortic annulus size. IVC Normal inferior vena cava. CONCLUSIONS Normal left ventricular size and systolic function, EF 64%. Grade I/IV diastolic dysfunction (abnormal relaxation filling pattern), normal to mildly elevated filling pressures. Mild left ventricular hypertrophy. Trace to mild mitral valve regurgitation. Thickened aortic valve. Aortic valve sclerosis. Trace aortic valve regurgitation. There is no pericardial effusion. There are no intracardiac masses. No similar previous studies are available for comparison Dr Maru Gomes MD FACC (Electronically Signed) Final Date: 07 February 2025 18:18 S
== END 2025-02-04 11:15 | disposition home or self-care (01) ==
LOC: RAD 11:15
PROVIDERS: PCP Family Medicine; Visit Provider Internal Medicine Cardiovascular Disease
DX: I20.89 Other forms of angina pectoris (principal); R93.1 Abnormal findings on diagnostic imaging of heart and coronary circulation; I34.0 Nonrheumatic mitral (valve) insufficiency; I35.8 Other nonrheumatic aortic valve disorders; I51.7 Cardiomegaly
CPT/HCPCS: 93306

== ENCOUNTER → 2025-03-27 13:53 | Outpatient (BNVA) | payer MEDICARE, OTHER, SELFPAY | PROVIDERS: PCP Family Medicine; Visit Provider Family Medicine | DX: D50.9 Iron deficiency anemia, unspecified (principal); D50.8 Other iron deficiency anemias; Z13.6 Encounter for screening for cardiovascular disorders; E55.9 Vitamin D deficiency, unspecified; Z86.39 Personal history of other endocrine, nutritional and metabolic disease | CPT/HCPCS: 82306; 82728; 83550; 85025 ==

== ENCOUNTER → 2025-04-11 11:01 | Outpatient (BNVA) | payer MEDICARE, OTHER, SELFPAY | PROVIDERS: PCP Family Medicine; Visit Provider Dermatology | DX: L24.9 Irritant contact dermatitis, unspecified cause (principal); D18.01 Hemangioma of skin and subcutaneous tissue; I83.93 Asymptomatic varicose veins of bilateral lower extremities; H00.14 Chalazion left upper eyelid; H00.12 Chalazion right lower eyelid; L60.8 Other nail disorders; L82.0 Inflamed seborrheic keratosis | CPT/HCPCS: 17110; 99213 ==